=== PATIENT | female | born 1985 | race Caucasian/White ===

== ENCOUNTER 2018-12-19 20:56 | Inpatient (IN) ==
[2018-12-19] MEDS ORDERED: CEFTAROLINE 600 MG in SODIUM CHLORIDE 0.9% 100 ML IV STA (22:14)
[2018-12-19] MEDS ORDERED: SODIUM CHLORIDE 0.9% 500 ML IV STA (22:14)
[2018-12-19 22:56] LABS: Basophils % 0.2 % (0.0-0.8); Eosinophils # 0.1 10*3/uL (0.0-0.87); Eosinophils % 0.6 % (0.00-10.9); Hematocrit 43.8 VOL% (35.7-47.0); Immature Granulocytes % 0.3 %; Immature Granulocytes Absolute 0.04 #; Lymphocytes # 3.8 10*3/uL (1.4-4.0); Lymphocytes % 31.8 % (21.3-54.2); Mean Corpuscular Hemoglobin 30 PG (27-34); Mean Corpuscular Volume 92.4 FL (87-102); Mean Platelet Volume 10.5 FL (9.6-12.0); Monocytes # 0.9 10*3/uL (0.11-0.8); Monocytes % 7.7 % (1.7-12.7); Neutrophils # 7.1 10*3/uL (1.4-7.4); Neutrophils % 59.4 % (38.7-73.9); Platelet Count 316 T/CUMM (130-400); Red Blood Count 4.74 MC/CUMM (3.8-5.5); Red Cell Distribution Width 13.8 % (9.3-17.3); White Blood Count 11.9 T/CUMM (4-12)
[2018-12-19 23:14] LABS: Albumin 3.6 G/DL (3.4-5.0); Bilirubin,Total 0.6 MG/DL (0.2-1.0); Calcium 8.9 MG/DL (8.5-10.1); Osmolality,Calculated 274.5 MOS/KG (273-304); Potassium 3.9 MMOL/L (3.5-5.1); Total Protein 7.9 G/DL (6.4-8.3)
[2018-12-19 23:22] LABS: Apearance,Urine Slightly Hazy (Clear); Bacteria,Urine Few /HPF (Few); Bilirubin,Urine Negative (Negative); Blood, Urine Negative (Negative); Glucose,Urine (UA) Negative (Negative); Ketones,Urine Negative (Negative); Mucus,Urine Many /LPF (Occasional); Nitrite,Urine Negative (Negative); Protein,Urine Negative; RBC,Urine 5 /HPF (0-4); Squamous Epithelial Cell,Urine Occasional /HPF (0-10); Urine Color Yellow (Yellow); Urine Specific Gravity 1.013 (1.001-1.035); Urine Urobilinogen < 2.0 EU/DL (0.2-1.0); WBC,Urine 6 /HPF (0-6)
[2018-12-19 23:24] LABS: Barbiturates Screen,Urine Negative (Negative); Benzodiazepines Screen,Urine Positive (Negative); Cannabinoid Screen,Urine Negative (Negative); Opiate Screen,Urine Positive (Negative); Phencyclidine Screen,Urine Negative (Negative)
[2018-12-20 00:04] LABS: Sedimentation Rate-Westergren 17 MM/HR (0-20)
[2018-12-20] MEDS ORDERED: ONDANSETRON 4 MG/2 ML VIAL IV PRN (00:56)
[2018-12-20] MEDS ORDERED: diphenhydrAMINE CAP 50 MG CAPSULE PO PRN (01:24)
[2018-12-20] MEDS ORDERED: MELATONIN 3 MG TABLET PO PRN (01:25)
[2018-12-20] MEDS: ENOXAPARIN 40 MG/0.4 ML SYRINGE SUBCUT SCH (02:38)
[2018-12-20] MEDS: oxyCODONE/ACETAMINOPHEN 5-325 MG TABLET PO PRN ×4 (02:38→22:20)
[2018-12-20 07:02] LABS: Basophils % 0.1 % (0.0-0.8); Eosinophils # 0.1 10*3/uL (0.0-0.87); Hematocrit 36.9 VOL% (35.7-47.0); Immature Granulocytes % 0.3 %; Immature Granulocytes Absolute 0.03 #; Lymphocytes # 3.3 10*3/uL (1.4-4.0); Lymphocytes % 36.6 % (21.3-54.2); Mean Corpuscular HGB Conc 31.7 GM/DL (32-36); Mean Corpuscular Hemoglobin 30 PG (27-34); Mean Corpuscular Volume 92.9 FL (87-102); Mean Platelet Volume 10.1 FL (9.6-12.0); Monocytes # 0.9 10*3/uL (0.11-0.8); Monocytes % 9.4 % (1.7-12.7); Neutrophils # 4.8 10*3/uL (1.4-7.4); Neutrophils % 52.6 % (38.7-73.9); Platelet Count 282 T/CUMM (130-400); Red Blood Count 3.97 MC/CUMM (3.8-5.5); Red Cell Distribution Width 13.7 % (9.3-17.3); White Blood Count 9.1 T/CUMM (4-12)
[2018-12-20 07:03] LABS: Hemoglobin 11.7 GM/DL (12.0-16.0)
[2018-12-20] MEDS: PANTOPRAZOLE 40 MG TABLET PO SCH (08:55)
[2018-12-20] MEDS: CEFTAROLINE 600 MG in SODIUM CHLORIDE 0.9% 100 ML IV SCH ×2 (13:58→21:17)
[2018-12-20] MEDS ORDERED: tiZANidine 4 MG TABLET PO SCH (17:00)
[2018-12-20] MEDS: CITALOPRAM 20 MG TABLET PO SCH (17:19)
[2018-12-20] MEDS: GABAPENTIN 600 MG TABLET PO SCH (21:17)
[2018-12-20] MEDS: tiZANidine 4 MG TABLET PO SCH (21:17)
[2018-12-21 06:27] LABS: Risk Ratio 3.32
[2018-12-21] MEDS: CEFTAROLINE 600 MG in SODIUM CHLORIDE 0.9% 100 ML IV SCH (08:39)
[2018-12-21] MEDS: ENOXAPARIN 40 MG/0.4 ML SYRINGE SUBCUT SCH (08:39)
[2018-12-21] MEDS: GABAPENTIN 600 MG TABLET PO SCH (08:39)
[2018-12-21] MEDS: CITALOPRAM 20 MG TABLET PO SCH (08:39)
[2018-12-21] MEDS: PANTOPRAZOLE 40 MG TABLET PO SCH (08:39)
[2018-12-21] MEDS: tiZANidine 4 MG TABLET PO SCH (08:39)
[2018-12-21] MEDS: oxyCODONE/ACETAMINOPHEN 5-325 MG TABLET PO PRN (08:45)
[2018-12-21] MEDS ORDERED: CITALOPRAM 20 MG TABLET PO SCH (09:00)
[2018-12-21 11:36] VITALS: BP 100/76
[2018-12-21 12:07] LABS: Free T4 (Free Thyroxine) 1.1 NG/DL (0.76-1.46)
== END 2018-12-21 13:52 | disposition home or self-care (01) | DRG 383 ==
LOC: N.ED 20:56 → N.2E 12-20 01:35
PROVIDERS: ADMIT Internal Medicine; ATTEND Internal Medicine